=== PATIENT | male | born 1975 | race Caucasian/White ===

== ENCOUNTER 2017-03-08 07:41 | Day surgery (SDC) | payer BC ==
[2017-03-08] MEDS ORDERED: SIMETHICONE 40 MG/0.6 ML ML ONE (08:04)
[2017-03-08] MEDS: MIDAZOLAM HCL 5 MG/5 ML VIAL ONE ×4 (09:02→09:13)
[2017-03-08] MEDS: fentaNYL CITRATE/PF 100 MCG/2 ML AMP ONE ×3 (09:02→09:08)
[2017-03-08] MEDS ORDERED: fentaNYL CITRATE/PF 100 MCG/2 ML AMP ONE (09:06)
[2017-03-08] MEDS ORDERED: DIPHENHYDRAMINE INJ 50 MG/ML VIAL ONE (09:31)
[2017-03-08 11:58] VITALS: BP_SYST 156
== END 2017-03-08 10:00 | disposition home or self-care (01) ==
LOC: SDS 07:41 → SMU 07:41 → SDS 10:00
PROVIDERS: ATTEND Internal Medicine
DX: K29.70 Gastritis, unspecified, without bleeding (principal); E66.01 Morbid (severe) obesity due to excess calories; Z68.43 Body mass index [BMI] 50.0-59.9, adult; I10 Essential (primary) hypertension
CPT/HCPCS: 43239; 88305; 88312; 88313; J1200; J2250; J3010; J7030